=== PATIENT | male | born 1965 | race Caucasian/White ===

== ENCOUNTER 2017-10-04 12:50 | Emergency (ER) | payer MEDICAID ==
[2017-10-04] MEDS ORDERED: OXYMETAZOLINE 0.05% NASL SPRAY 1 SPRAY BOTTLE NASAL STA (12:54)
[2017-10-04] MEDS ORDERED: SODIUM CHLORIDE 0.9% 1,000 ML IV STA ×2 (13:05)
[2017-10-04 13:30] VITALS: RESP 18
[2017-10-04 13:34] LABS: Basophils % (A) 0 %; Eosinophils # (A) 0.1 k/uL (0-0.7); Eosinophils % (A) 1 %; HCT 40.8 % (39.0-53.0); HGB 14.4 gm/dL (13.0-17.5); Lymphocytes # (A) 1.4 k/uL (1.0-4.8); Lymphocytes % (A) 17 %; MCH 30.1 pg (25.0-35.0); MCHC 35.4 g/dL (31.0-37.0); MCV 85.1 fL (80.0-100.0); Mean Platelet Volume 7.4; Monocytes # (A) 0.4 k/uL (0-1.0); Monocytes % (A) 4 %; Neutrophils # (A) 6.5 k/uL (1.3-7.7); Neutrophils % (A) 77 %; Platelet Count 286 k/uL (150-450); RBC 4.79 m/uL (4.30-5.90); RDW 13.1 % (11.5-15.5); WBC 8.5 k/uL (3.8-10.6)
[2017-10-04 13:35] LABS: Glucose,Whole Blood 295 mg/dL (75-99)
[2017-10-04 13:45] LABS: ALT 56 U/L (21-72); AST 35 U/L (17-59); Albumin 4.4 g/dL (3.5-5.0); Alkaline Phosphatase 71 U/L (38-126); Anion Gap 12 mmol/L; Blood Urea Nitrogen 14 mg/dL (9-20); Calcium 9.9 mg/dL (8.4-10.2); Carbon Dioxide 20 mmol/L (22-30); Chloride 103 mmol/L (98-107); Glucose 294 mg/dL (74-99); Potassium 4.8 mmol/L (3.5-5.1); Sodium 135 mmol/L (137-145); Total Bilirubin 1.1 mg/dL (0.2-1.3); Total Protein 7.3 g/dL (6.3-8.2)
--- NOTE | 2017-10-04 15:50 | ED ---
General Adult HPI - General Chief complaint: ENT Stated complaint: nose bleed Time Seen by Provider: 10/04/17 12:53 Source: patient, EMS Mode of arrival: EMS Limitations: no limitations - History of Present Illness Initial comments: 52 years old male has a massive nosebleed, he has a large amount of blood in the containers when he arrived here and he was bleeding profusely his nose was dripping and then he got quite diaphoretic he got 3 presyncope state got very diaphoretic quite pass out. He denied any trauma to his nose he is not on any blood thinners he doesn't have any history of sinusitis or rhinitis denies any headaches no chest pain no shortness of breath no abdominal pain no frequency urgency dysuria. Review of system is otherwise unremarkable - Related Data Home Medications Medication Instructions Recorded Confirmed Hydrochlorothiazide 25 mg PO DAILY 10/04/17 10/04/17 Lisinopril [Zestril] 10 mg PO DAILY 10/04/17 10/04/17 Previous Rx's Medication Instructions Recorded Amoxicillin 500 mg PO Q8H #15 capsule 10/04/17 Allergies Allergy/AdvReac Type Severity Reaction Status Date / Time steroids AdvReac "blind Uncoded 10/04/17 13:54 spots" Review of Systems ROS Statement: Those systems with pertinent positive or pertinent negative responses have been documented in the HPI. ROS Other: All systems not noted in ROS Statement are negative. Past Medical History Past Medical History: Hypertension History of Any Multi-Drug Resistant Organisms: None Reported Past Surgical History: No Surgical Hx Reported Past Psychological History: No Psychological Hx Reported Smoking Status: Never smoker Past Alcohol Use History: None Reported Past Drug Use History: None Reported General Exam - General Exam Comments Initial Comments: General: The patient is awake and severe distress from massive epistaxis, GCS is 15 Skin: Skin is warm and dry and no rashes or lesions are noted. Eye: Pupils are equal, round and reactive to light, extra-ocular movements are intact; there is normal conjunctiva bilaterally. Ears, nose, mouth and throat: Noticed a massive epistaxis from the left nostril , was not able to visualize the bleeding spot, seems anterior bleeding because nasal packing immediately stop the bleeding Neck: The neck is supple, there is no tenderness Cardiovascular: There is a regular rate and rhythm. No murmur, rub or gallop is appreciated, noticed tachycardia. Respiratory: To auscultation bilateral, no wheezing no rhonchi no distress respiratory robertson noticed Gastrointestinal: Soft, non-distended, non-tender abdomen without masses or organomegaly noted. There is no rebound or guarding present. Bowel sounds are unremarkable. Back: There is no tenderness to palpation in the midline. There is no obvious deformity. Musculoskeletal: Normal ROM, no tenderness, There is no pedal edema. There is no calf tenderness or swelling. No cords were appreciated. Neurological: Patient alert neuro exam is within normal range there was no motor or sensory deficits cranial nerves strokes 12 are intact, during massive epistaxis that he became presyncopal he was diaphoretic and there was no loss of consciousness Pychiatric: Cooperative, appropriate mood & affect, normal judgment. Limitations: no limitations Course Vital Signs 10/04/17 10/04/17 10/04/17 12:55 13:23 15:33 Temperature 99 F Pulse Rate 147 H 106 H 107 H Respiratory 16 18 18 Rate Blood Pressure 151/96 120/66 134/79 O2 Sat by Pulse 98 98 95 Oximetry Upon reassessment noticed EKG is normal troponin is normal, his metabolic panel and CBC is within normal range he feels fine he be discharged home to come back for the removal of the packing in 2 days EKG Findings - EKG Comments: EKG Findings:: EKG is normal sinus with the fast heart rate of 107 CA interval is 158 QRS duration is 84 QT/QTc is 356/475 review of this EKG does not reveal any ST elevation or ST depression Medical Decision Making - Lab Data Result diagrams: 10/04/17 13:24 10/04/17 13:24 Lab Results 10/04/17 10/04/17 10/04/17 Range/Units 13:11 13:24 13:24 WBC 8.5 (3.8-10.6) k/uL RBC 4.79 (4.30-5.90) m/uL Hgb 14.4 (13.0-17.5) gm/dL Hct 40.8 (39.0-53.0) % MCV 85.1 (80.0-100.0) fL MCH 30.1 (25.0-35.0) pg MCHC 35.4 (31.0-37.0) g/dL RDW 13.1 (11.5-15.5) % Plt Count 286 (150-450) k/uL Neutrophils % 77 % Lymphocytes % 17 % Monocytes % 4 % Eosinophils % 1 % Basophils % 0 % Neutrophils # 6.5 (1.3-7.7) k/uL Lymphocytes # 1.4 (1.0-4.8) k/uL Monocytes # 0.4 (0-1.0) k/uL Eosinophils # 0.1 (0-0.7) k/uL Basophils # 0.0 (0-0.2) k/uL Sodium 135 L (137-145) mmol/L Potassium 4.8 (3.5-5.1) mmol/L Chloride 103 (98-107) mmol/L Carbon Dioxide 20 L (22-30) mmol/L Anion Gap 12 mmol/L BUN 14 (9-20) mg/dL Creatinine 1.10 (0.66-1.25) mg/dL Est GFR (CKD-EPI)AfAm >90 (>60 ml/min/1.73 sqM) Est GFR (CKD-EPI)NonAf 78 (>60 ml/min/1.73 sqM) Glucose 294 H (74-99) mg/dL POC Glucose (mg/dL) 295 H (75-99) mg/dL POC Glu Pelt Dropper ID Jessica Estevez Calcium 9.9 (8.4-10.2) mg/dL Total Bilirubin 1.1 (0.2-1.3) mg/dL AST 35 (17-59) U/L ALT 56 (21-72) U/L Alkaline Phosphatase 71 (38-126) U/L Troponin I (0.000-0.034) ng/mL Total Protein 7.3 (6.3-8.2) g/dL Albumin 4.4 (3.5-5.0) g/dL Blood Type Blood Type Confirm Blood Type Recheck Antibody Screen Spec Expiration Date 10/04/17 10/04/17 10/04/17 Range/Units 13:24 13:25 13:26 WBC (3.8-10.6) k/uL RBC (4.30-5.90) m/uL Hgb (13.0-17.5) gm/dL Hct (39.0-53.0) % MCV (80.0-100.0) fL MCH (25.0-35.0) pg MCHC (31.0-37.0) g/dL RDW (11.5-15.5) % Plt Count (150-450) k/uL Neutrophils % % Lymphocytes % % Monocytes % % Eosinophils % % Basophils % % Neutrophils # (1.3-7.7) k/uL Lymphocytes # (1.0-4.8) k/uL Monocytes # (0-1.0) k/uL Eosinophils # (0-0.7) k/uL Basophils # (0-0.2) k/uL Sodium (137-145) mmol/L Potassium (3.5-5.1) mmol/L Chloride (98-107) mmol/L Carbon Dioxide (22-30) mmol/L Anion Gap mmol/L BUN (9-20) mg/dL Creatinine (0.66-1.25) mg/dL Est GFR (CKD-EPI)AfAm (>60 ml/min/1.73 sqM) Est GFR (CKD-EPI)NonAf (>60 ml/min/1.73 sqM) Glucose (74-99) mg/dL POC Glucose (mg/dL) (75-99) mg/dL POC Glu Pelt Dropper ID Calcium (8.4-10.2) mg/dL Total Bilirubin (0.2-1.3) mg/dL AST (17-59) U/L ALT (21-72) U/L Alkaline Phosphatase (38-126) U/L Troponin I <0.012 (0.000-0.034) ng/mL Total Protein (6.3-8.2) g/dL Albumin (3.5-5.0) g/dL Blood Type A Negative Blood Type Confirm A Negative Blood Type Recheck CABO Indicated Antibody Screen NEGATIVE Spec Expiration Date 10/07/2017 3653 Critical Care Time Total Critical Care Time: 30 Critical Care Time: Chest x-ray as well as a pretty impressive he has a large wound and applied in a container and he continued to bleed another at least 100 mL in the ER prior to I saw him on his arrival he was seen now within couple of minutes we set up a quick IV given some fluids left-sided the nose was packed and immediately stopped the bleeding. But in the meantime he got pretty diaphoretic he got presyncopal. He got pale, immediate sugar was checked it was within normal range for a resuscitation was done with 1 L of fluids patient improved in about 30 minutes, hemoglobin is still pretty healthy does not need any further intervention or transfusion Disposition Clinical Impression: Epistaxis, Hyperglycemia, Pre-syncope Disposition: HOME SELF-CARE Instructions: Nosebleed (ED) Prescriptions: Amoxicillin 500 mg PO Q8H #15 capsule Is patient prescribed a controlled substance at d/c from ED?: No Referrals: None,Stated [Primary Care Provider] - 1-2 days
[2017-10-04] MEDS ORDERED: SODIUM CHLORIDE 0.9% 1,000 ML IV ONE (16:05)
[2017-10-04 17:03] VITALS: BP 138/89; PULSE 102; TEMP 98
--- NOTE | 2017-10-05 05:56 | CDI ---
Dear Fabiana Matt MD: Please do addendum the material used for nasal packing. Thank you, Bry Hernandez, Pasteurizing Supervisor. If you have any questions, please contact Gun Examiner at [phone]. [facility]
== END 2017-10-04 16:55 | disposition home or self-care (01) ==
LOC: EC 12:50
DX: R04.0 Epistaxis (principal); R55 Syncope and collapse; R73.9 Hyperglycemia, unspecified; R00.0 Tachycardia, unspecified; R61 Generalized hyperhidrosis; I10 Essential (primary) hypertension; Z79.899 Other long term (current) drug therapy; Z88.8 Allergy status to other drugs, medicaments and biological substances
CPT/HCPCS: 36415; 80053; 84484; 85025; 86850; 86900; 86901; 93005; 96360; 96361; 99284

== ENCOUNTER 2017-10-05 14:10 | Emergency (ER) | payer MEDICAID ==
[2017-10-05 14:15] VITALS: BP 167/90; PULSE 106; RESP 20; TEMP 98.5
--- NOTE | 2017-10-05 15:03 | ED ---
ENT HPI - General Chief complaint: ENT Stated complaint: nose bleed-revisit Time Seen by Provider: 10/05/17 14:29 Source: patient Mode of arrival: ambulatory Limitations: no limitations - History of Present Illness Initial comments: 52 years old male was seen yesterday for the epistaxis be a mild bleeding after he had a left-sided nose packing done now it has stopped and he still has packing in their home but there was time he noticed some bruising from the packing. He denies any headaches no blurred vision no trauma to the nose no chest pain or shortness of breath review of system is unremarkable otherwise - Related Data Home Medications Medication Instructions Recorded Confirmed Hydrochlorothiazide 25 mg PO DAILY 10/04/17 10/05/17 Lisinopril [Zestril] 10 mg PO DAILY 10/04/17 10/05/17 Previous Rx's Medication Instructions Recorded Amoxicillin 500 mg PO Q8H #15 capsule 10/04/17 Allergies Allergy/AdvReac Type Severity Reaction Status Date / Time steroids AdvReac "blind Uncoded 10/05/17 14:12 spots" Review of Systems ROS Statement: Those systems with pertinent positive or pertinent negative responses have been documented in the HPI. ROS Other: All systems not noted in ROS Statement are negative. Past Medical History Past Medical History: Hypertension History of Any Multi-Drug Resistant Organisms: None Reported Past Surgical History: No Surgical Hx Reported Past Psychological History: No Psychological Hx Reported Smoking Status: Never smoker Past Alcohol Use History: None Reported Past Drug Use History: None Reported General Exam - General Exam Comments Initial Comments: General: The patient is awake and alert, in no distress, and does not appear acutely ill. He is bit anxious Skin: Skin is warm and dry and no rashes or lesions are noted. Eye: Pupils are equal, round and reactive to light, extra-ocular movements are intact; there is normal conjunctiva bilaterally. Ears, nose, mouth and throat: Right-sided done and looks fine there is some dried blood in there and left-sided of the nose is still packed, no obvious bleeding noticed Neck: The neck is supple, there is no tenderness or JVD. Cardiovascular: There is a regular rate and rhythm. No murmur, rub or gallop is appreciated. Respiratory: To auscultation bilateral, no wheezing no rhonchi no distress respiratory robertson noticed Gastrointestinal: Soft, non-distended, non-tender abdomen without masses or organomegaly noted. There is no rebound or guarding present. Bowel sounds are unremarkable. Back: There is no tenderness to palpation in the midline. There is no obvious deformity. Musculoskeletal: Normal ROM, no tenderness, There is no pedal edema. There is no calf tenderness or swelling. No cords were appreciated. Neurological: CN II-XII intact, Cranial nerves III through XII are intact. There are no obvious motor or sensory deficits. Coordination appears grossly intact. Speech is normal. Psychiatric: Cooperative, appropriate mood & affect, normal judgment. Limitations: no limitations Course Vital Signs 10/05/17 14:13 Temperature 98.5 F Pulse Rate 106 H Respiratory 20 Rate Blood Pressure 167/90 O2 Sat by Pulse 99 Oximetry And centering that there was a off-and-on bleeding from the packing we decided to leave the packing for another 24 hours patient and treat for that. He is advised to return to the ER if bleeding gets heavier and we need to repack the left side. Disposition Clinical Impression: Epistaxis Disposition: HOME SELF-CARE Condition: Good Instructions: Nosebleed (ED) Additional Instructions: Is advised to return to the ER for packing removal in 24 hours or earlier if bleeding restarts Is patient prescribed a controlled substance at d/c from ED?: No Referrals: None,Stated [Primary Care Provider] - 1-2 days
== END 2017-10-05 15:26 | disposition home or self-care (01) ==
LOC: EC 14:10
DX: R04.0 Epistaxis (principal); I10 Essential (primary) hypertension; Z79.899 Other long term (current) drug therapy; Z88.8 Allergy status to other drugs, medicaments and biological substances
CPT/HCPCS: 99283

== ENCOUNTER 2017-10-06 14:51 | Emergency (ER) | payer MEDICAID ==
[2017-10-06 14:55] VITALS: BP 138/88; PULSE 100; RESP 18; TEMP 99.3
--- NOTE | 2017-10-06 15:35 | ED ---
General Adult HPI - General Chief complaint: ENT Stated complaint: nose bleed Time Seen by Provider: 10/06/17 14:55 Source: patient, RN notes reviewed Mode of arrival: ambulatory Limitations: no limitations - History of Present Illness Initial comments: This a 52-year-old male presents emergency Department because he has had a nasal packing his left ear for 2 days and he was told to take 2 days. Patient states occasionally it still troubling a little bit of blood and he wasn't sure he wanted to take out at this time. Patient states he has an appointment on Sunday early for epistaxis. Patient states if possible he preferred to wait till then. Patient states his blood pressures been well controlled during this period of time. Patient states he's not had bloody noses in the past and he has no bleeding disorder that he knows of. - Related Data Home Medications Medication Instructions Recorded Confirmed Hydrochlorothiazide 25 mg PO DAILY 10/04/17 10/05/17 Lisinopril [Zestril] 10 mg PO DAILY 10/04/17 10/05/17 Previous Rx's Medication Instructions Recorded Amoxicillin 500 mg PO Q8H #15 capsule 10/04/17 Allergies Allergy/AdvReac Type Severity Reaction Status Date / Time steroids AdvReac "blind Uncoded 10/06/17 14:55 spots" Review of Systems ROS Statement: Those systems with pertinent positive or pertinent negative responses have been documented in the HPI. ROS Other: All systems not noted in ROS Statement are negative. Past Medical History Past Medical History: Hypertension History of Any Multi-Drug Resistant Organisms: None Reported Past Surgical History: No Surgical Hx Reported Past Psychological History: No Psychological Hx Reported Smoking Status: Never smoker Past Alcohol Use History: None Reported Past Drug Use History: None Reported General Exam - General Exam Comments Initial Comments: GENERAL Patient is well-developed and well-nourished. Patient is in mild distress. EYES Patient's pupils are equal and round. Extraocular motion is intact ENT patient has nasal packing in the left near no active bleeding is seen SKIN Unremarkable NEURO The patient is alert and oriented 3 PYSCH Patient has normal interpersonal interactions. Limitations: no limitations Course Vital Signs 10/06/17 14:52 Temperature 99.3 F Pulse Rate 100 Respiratory 18 Rate Blood Pressure 138/88 O2 Sat by Pulse 99 Oximetry Disposition Clinical Impression: Epistaxis Disposition: HOME SELF-CARE Condition: Good Instructions: Nosebleed (ED) Additional Instructions: Patient should follow-up with Dr. Montez on Sunday. Patient should continue his antibiotics as prescribed Is patient prescribed a controlled substance at d/c from ED?: No Referrals: Jacinta Salazar MD [Primary Care Provider] - 1-2 days Time of Disposition: 15:35
== END 2017-10-06 15:43 | disposition home or self-care (01) ==
LOC: EC 14:51
DX: R04.0 Epistaxis (principal); I10 Essential (primary) hypertension; Z79.899 Other long term (current) drug therapy; Z88.8 Allergy status to other drugs, medicaments and biological substances
CPT/HCPCS: 99283

== ENCOUNTER 2018-10-20 22:49 | Emergency (ER) | payer MEDICAID ==
[2018-10-20 23:14] VITALS: RESP 18; TEMP 98.9
--- NOTE | 2018-10-20 23:41 | ED ---
ENT HPI - General Chief complaint: ENT Stated complaint: Nose bleed Time Seen by Provider: 10/20/18 23:26 Source: patient Mode of arrival: ambulatory Limitations: no limitations - History of Present Illness Initial comments: 53-year-old male patient presents to the emergency department today for evaluation of nosebleed. Patient states that around 4 PM he had some bleeding from the right nostril. States that it did stop shortly afterwards. Patient states he had a nosebleed last year that was severe, heavy, and required packing and then cautery. Patient is concerned that this may happen again. Patient's blood pressure is elevated. States that he has been out of his hydrochlorothiazide for the last 3 days. States that he is also been in a str essful situation today. He denies any headache, blurred vision, double vision. Denies any chest pain, shortness of breath, nausea, or vomiting. Denies any use of anticoagulants or antiplatelet medications. Patient denies any recent rash, fever, chills, diarrhea, constipation, back pain, numbness, tingling, dizziness, weakness, hematuria, dysuria, urinary urgency, urinary frequency, visual gonzalez es, or any other complaints. - Related Data Home Medications Medication Instructions Recorded Confirmed Hydrochlorothiazide 25 mg PO DAILY 10/04/17 10/20/18 Lisinopril 20 mg PO DAILY 10/20/18 10/20/18 Previous Rx's Medication Instructions Recorded Hydrochlorothiazide 25 mg PO DAILY #15 tablet 10/20/18 Allergies Allergy/AdvReac Type Severity Reaction Status Date / Time steroids AdvReac "blind Uncoded 10/20/18 23:14 spots" Review of Systems ROS Statement: Those systems with pertinent positive or pertinent negative responses have been documented in the HPI. ROS Other: All systems not noted in ROS Statement are negative. Past Medical History Past Medical History: Hypertension History of Any Multi-Drug Resistant Organisms: None Reported Past Surgical History: No Surgical Hx Reported Past Psychological History: No Psychological Hx Reported Smoking Status: Never smoker Past Alcohol Use History: None Reported Past Drug Use History: None Reported General Exam Limitations: no limitations General appearance: alert, in no apparent distress, other (This is a well- developed, well-nourished adult male patient in no acute distress. Vital signs upon presentation are temperature 98.9F, pulse 89, respirations 18, blood pressure 190/120, pulse ox 99% on room air.) Eye exam: Present: normal appearance, PERRL, EOMI. Absent: scleral icterus, conjunctival injection, periorbital swelling ENT exam: Present: normal exam, normal oropharynx, mucous membranes moist, other (Dried blood to the right nasal passage. No active bleeding noted.) Respiratory exam: Present: normal lung sounds bilaterally. Absent: respiratory distress, wheezes, rales, rhonchi, stridor Cardiovascular Exam: Present: regular rate, normal rhythm, normal heart sounds. Absent: systolic murmur, diastolic murmur, rubs, gallop, clicks GI/Abdominal exam: Present: soft, normal bowel sounds. Absent: distended, tenderness, guarding, rebound, rigid Neurological exam: Present: alert, oriented X3, CN II-XII intact Psychiatric exam: Present: normal affect, normal mood Skin exam: Present: warm, dry, intact, normal color. Absent: rash Course Vital Signs 10/20/18 10/20/18 10/20/18 23:11 23:32 23:50 Temperature 98.9 F Pulse Rate 89 91 Respiratory 18 18 Rate Blood Pressure 190/120 183/111 193/119 O2 Sat by Pulse 99 98 Oximetry Medical Decision Making - Medical Decision Making 53-year-old male patient presented to the emergency department today for evaluation of right epistaxis. Upon his arrival here bleeding has resolved. He did report to very minor episodes of bleeding prior to coming in. Blood pressure is elevated. States he has been out of his blood pressure medication for the last 3 days. We'll give a dose here. Results prescription for 2 weeks until he can get into his primary care physician. He is educated regarding management of epistaxis at home and when to return. He is going to follow-up with his ENT specialist tomorrow. Return parameters were discussed in detail. He verbalizes understanding and agrees with this plan. Disposition Clinical Impression: Epistaxis, Hypertension Disposition: HOME SELF-CARE Condition: Good Instructions (If sedation given, give patient instructions): Nosebleed (ED), Hypertension (ED) Additional Instructions: If bleeding starts again, blood, hold solid pressure for 20 minutes without stopping. If bleeding persists presents to the emergency department for further evaluation. Follow-up with ENT specialist tomorrow as you have planned. Follow-up with your primary care physician for recheck in 1-2 days. Return to the emergency department immediately for any new, worsening, or concerning symptoms. Prescriptions: Hydrochlorothiazide 25 mg PO DAILY #15 tablet Is patient prescribed a controlled substance at d/c from ED?: No Referrals: Jacinta Salazar MD [Primary Care Provider] - 1-2 days Time of Disposition: 23:41
[2018-10-20] MEDS ORDERED: HYDROCHLOROTHIAZIDE 25 MG TAB PO ONE (23:45)
[2018-10-20 23:52] VITALS: BP 193/119; PULSE 91
== END 2018-10-20 23:50 | disposition home or self-care (01) ==
LOC: EC 22:49
DX: R04.0 Epistaxis (principal); I10 Essential (primary) hypertension; Z79.899 Other long term (current) drug therapy; Z88.8 Allergy status to other drugs, medicaments and biological substances
CPT/HCPCS: 99283